=== PATIENT | female | born 1990 | race American Indian/Alaskan Native ===

== ENCOUNTER 2020-07-04 00:16 | Emergency (ER) | payer SELFPAY ==
[2020-07-04 00:28] VITALS: BP 138/88; PULSE 88
[2020-07-04] MEDS ORDERED: Sodium Chloride 0.9% 1,000 ML IV ONE (00:28)
[2020-07-04] MEDS ORDERED: Clindamycin Phosphate 900 MG in Sodium Chloride 0.9% 100 ML IV ONE (00:28)
--- NOTE | 2020-07-04 00:32 | EDM.PDOC ---
ED HPI GENERAL MEDICAL PROBLEM - General Chief Complaint: Skin Complaint Stated Complaint: NEEDS SOMEHTING CHECKED ON LOWER LEG Time Seen by Provider: 07/04/20 00:29 Source of Information: Reports: Patient History Limitations: Reports: No Limitations - History of Present Illness INITIAL COMMENTS - FREE TEXT/NARRATIVE: rather unhappy pt still talking on her cell phone stating she noticed painful lump on her neck today. states not had TL. Posterior Neck Pain Score (Numeric/FACES): 6 - Related Data Allergies Allergy/AdvReac Type Severity Reaction Status Date / Time tramadol Allergy Dizziness Verified 07/04/20 00:28 Home Meds: Home Meds Acetaminophen [Tylenol Extra Strength] 1,000 mg PO ASDIRECTED PRN 07/25/15 [History] Ibuprofen 800 mg PO ASDIRECTED PRN 07/25/15 [History] Gabapentin [Neurontin] 200 mg PO TID 12/10/15 [History] Pnv,Calcium 72/Iron/Folic Acid [Pnv Plus Multivit Tab] 1 tab PO DAILY 12/10/15 [History] Iron 07/12/16 [History] Past Medical History - Past Health History Medical/Surgical History: Denies Medical/Surgical History HEENT History: Reports: Impaired Vision Respiratory History: Reports: Asthma Gastrointestinal History: Reports: GERD Genitourinary History: Reports: Pyelonephritis, UTI, Recurrent WOOL SAMPLER History: Reports: Ectopic , , Spontaneous , Other (See Below) Other WOOL SAMPLER History: D&C Musculoskeletal History: Reports: Back Pain, Chronic, Fracture Other Musculoskeletal History: from falling of Horse . Fr. rib Hematologic History: Reports: Anemia - Infectious Disease History Infectious Disease History: Reports: None - Past Surgical History Female Surgical History: Reports: D&C, Salpingo-Oophorectomy, Tubal Ligation Social & Family History - Family History Family Medical History: Noncontributory Musculoskeletal: Reports: Back pain, Chronic Other Musculoskeletal Family History: Aunt on mom's side. Endocrine/Metabolic: Reports: Diabetes, type II Other Endocrine/Metabolic Family History: Aunt on mom's side. Hematologic: Reports: Anemia Other Hematologic Family History: Mom - Caffeine Use Caffeine Use: Reports: Coffee, Soda - Sexual History Sexual History: Reports: Sexually Active - Living Situation & Occupation Living situation: Reports: with Family Occupation: Unemployed ED ROS GENERAL - Review of Systems Review Of Systems: Comprehensive ROS is negative, except as noted in HPI. ED EXAM, SKIN/RASH Exam: See Below Exam Limited By: Other (cranky) General Appearance: Alert, WD/WN, Mild Distress, Other (cranky talking on cell phone) Eye Exam: Bilateral Eye: PERRL (pupils ess ER @ 4mm) Ears: Hearing Grossly Normal Throat/Mouth: Normal Voice, No Airway Compromise Head: Atraumatic Neck: Other (left tender red boil) Respiratory/Chest: No Respiratory Distress Cardiovascular: Regular Rate, Rhythm GI/Abdominal: Soft, Non-Tender Neurological: Alert, Oriented, Normal Cognition, Normal Gait, No Motor/Sensory Deficits Psychiatric: Flat Affect, Other (cranky) Skin: Warm, Dry, Normal Color Location, Skin: Neck Characteristics: Erythematous Associated features: Warmth, Tenderness, Inflammation. No: Lymphangitis, Weeping Lymphatic: No Adenopathy Course - Vital Signs Last Recorded V/S: Last Vital Signs Temp 36.7 C 07/04/20 00:26 Pulse 88 07/04/20 00:26 Resp 18 07/04/20 00:26 BP 138/88 07/04/20 00:26 Pulse Ox 94 L 07/04/20 00:26 - Orders/Labs/Meds Orders: Active Orders 24 hr Category Date Time Status CULTURE BLOOD [BC] Stat Lab 07/04/20 00:41 Results Labs: Laboratory Tests 07/04/20 07/04/20 07/04/20 Range/Units 00:41 00:41 00:41 WBC 6.3 (5.0-10.0) 10^3/uL RBC 4.22 (4.2-5.4) 10^6/uL Hgb 10.1 L (12.0-16.0) g/dL Hct 31.3 L (37.0-47.0) % MCV 74.2 L (80-100) fL MCH 23.9 L (27.0-34.0) pg MCHC 32.3 L (33.0-35.0) g/dL Plt Count 331 (150-450) 10^3/uL Neut % (Auto) 65.9 (42.2-75.2) % Lymph % (Auto) 21.2 (20.5-50.1) % Tate % (Auto) 9.9 H (2-8) % Eos % (Auto) 2.7 (1.0-3.0) % Baso % (Auto) 0.3 (0.0-1.0) % Sodium 141 (136-145) mmol/L Potassium 3.8 (3.5-5.1) mmol/L Chloride 105 (98-107) mmol/L Carbon Dioxide 26 (21-32) mmol/L Anion Gap 13.8 H (7-13) mEq/L BUN 12 (7-18) mg/dL Creatinine 0.72 (0.55-1.02) mg/dL Est Cr Clr Drug Dosing 97.09 mL/min Estimated GFR (MDRD) > 60 BUN/Creatinine Ratio 16.7 (No establ ref range) Glucose 82 (74-99) mg/dL Lactic Acid 1.1 (0.4-2.0) mmol/L Calcium 9.1 (8.5-10.1) mg/dL Total Bilirubin 0.3 (0.2-1.0) mg/dL AST 142 H (15-37) U/L ALT 208 H (14-59) U/L Alkaline Phosphatase 72 (46-116) U/L Total Protein 8.2 (6.4-8.2) g/dL Albumin 3.3 L (3.4-5.0) g/dL Globulin 4.9 Albumin/Globulin Ratio 0.67 Meds: Medications Discontinued Medications Generic Name Dose Route Start Last Admin Trade Name Freq PRN Reason Stop Dose Admin Clindamycin Phosphate 900 mg/ 106 mls @ 200 mls/hr 07/04/20 00:28 07/04/20 01:33 Sodium Chloride IV 07/04/20 00:59 Infused ONETIME ONE Infusion Sodium Chloride 1,000 mls @ 999 mls/hr 07/04/20 00:28 07/04/20 03:06 Normal Saline IV 07/04/20 01:28 Infused .BOLUS ONE Infusion Iopamidol 100 ml 07/04/20 01:36 07/04/20 02:31 Isovue-300 (61%) IVPUSH 07/04/20 01:37 100 ml ONETIME ONE Administration - Re-Assessments/Exams Free Text/Narrative Re-Assessment/Exam: 07/04/20 02:49 results discussed with pt. Departure - Departure Time of Disposition: 03:32 Disposition: Home, Self-Care 01 Condition: Good Clinical Impression: Abscess - Discharge Information Instructions: Skin Abscess, [id number] Referrals: PCP,None [Primary Care Provider] - Forms: ED Department Discharge Additional Instructions: 1) hot compress to area 2) follow up at clinic rx given; clindamycin 300mg qid x 40 Sepsis Event Note (ED) - Evaluation Sepsis Screening Result: No Definite Risk - My Orders Last 24 Hours: My Active Orders 07/04/20 00:41 CULTURE BLOOD [BC] Stat - Assessment/Plan Last 24 Hours: My Active Orders 07/04/20 00:41 CULTURE BLOOD [BC] Stat
[2020-07-04 01:06] LABS: ANION GAP 13.8 mEq/L (7-13); CHLORIDE,CL 105 mmol/L (98-107); SODIUM,NA 141 mmol/L (136-145)
[2020-07-04] MEDS ORDERED: Iopamidol 612 MG/ML 100 ML Bottle IVPUSH ONE (01:36)
--- NOTE | 2020-07-04 01:37 | CR ---
PROCEDURE INFORMATION: Exam: XR Chest, 1 View Exam date and time: 07/04/2020 1:25 AM Age: 29 years old Clinical indication: Chest pain TECHNIQUE: Imaging protocol: XR of the chest Views: 1 view. COMPARISON: CT Chest wo Cont 07/12/2016 7:25 PM FINDINGS: Lungs: Low lung volumes. Patchy airspace opacities in the right mid to lower lung. Pleural space: Unremarkable. No pleural effusion. No pneumothorax. Heart/Mediastinum: Unremarkable. No cardiomegaly. Bones/joints: Unremarkable. Organs: Cholecystectomy clips. IMPRESSION: Low lung volumes. Patchy airspace opacities in the right mid to lower lung are nonspecific and may be secondary to pneumonia or asymmetric edema, among other differential considerations. Further assessment with full inspiration PA and lateral chest x-ray or CT chest may be helpful.
--- NOTE | 2020-07-04 02:43 | CT ---
PROCEDURE INFORMATION: Exam: CT Neck With Contrast Exam date and time: 07/04/2020 2:04 AM Age: 29 years old Clinical indication: Pain; Other: Abscess; Additional info: Abscess posterior neck, need depth and R/O osteomy TECHNIQUE: Imaging protocol: Computed tomography images of the neck with intravenous contrast. Radiation optimization: All CT scans at this facility use at least one of these dose optimization techniques: automated exposure control; mA and/or kV adjustment per patient size (includes targeted exams where dose is matched to clinical indication); or iterative reconstruction. Contrast material: ISOVUE; Contrast volume: 75 ml; Contrast route: INTRAVENOUS (IV); COMPARISON: CT Cervical Spine wo Cont 07/12/2016 7:25 PM FINDINGS: Nasopharynx: Unremarkable. Oropharynx: Unremarkable. No significant tonsillar enlargement. Hypopharynx: Unremarkable. Larynx: Unremarkable. Normal epiglottis. Retropharyngeal space: Unremarkable. Submandibular/Parotid glands: Normal. Glands are normal in size. Thyroid: Normal. No enlarged or calcified nodules. Lymph nodes: Unremarkable. No lymphadenopathy. Trachea: Visualized trachea is unremarkable. Lungs: Unremarkable as visualized. Bones/joints: Unremarkable. No acute fracture. Soft tissues: There is skin thickening and subcutaneous fat stranding in the left posterior neck soft tissues. No focal fluid collection or subcutaneous emphysema. IMPRESSION: Skin thickening and subcutaneous fat stranding in the left posterior neck soft tissues consistent with cellulitis. No abscess or subcutaneous emphysema.
== END 2020-07-04 03:32 | disposition home or self-care (01) ==
LOC: DL.ED 00:16
DX: L02.11 Cutaneous abscess of neck (principal); J45.909 Unspecified asthma, uncomplicated; Z79.899 Other long term (current) drug therapy; Z88.5 Allergy status to narcotic agent
CPT/HCPCS: 36415; 70491; 71045; 80053; 83605; 85025; 87040; 96365; 99283; J3490; J7030; J7050; Q9967

== ENCOUNTER 2021-10-13 06:33 | Emergency (ER) | payer SELFPAY ==
[2021-10-13 06:50] VITALS: BP 140/76; PULSE 135
== END 2021-10-13 07:20 | disposition left against medical advice (07) ==
LOC: DL.ED 06:33
DX: Z53.21 Procedure and treatment not carried out due to patient leaving prior to being seen by health care provider (principal)